=== PATIENT | male | born 1945 | race African-American/Black ===

== ENCOUNTER 2024-10-04 13:19 | Inpatient (IN) | payer MEDICARE, OTHER ==
[~2024-10-04] VITALS: Ht 180.3 cm; Wt 85.0 kg
[~2024-10-04 13:19] MED LIST: CARB-112 PO; LATA0.008 EACHEYE; LINA145C PO; LISI40TA16 PO; POTA8TAB38 PO; TAMS0.4C39 PO
--- NOTE | 2024-10-04 13:28 | ED.PDOC ---
Altered Mental Status HPI Comments 79 year old male SUKHDEEP presents to the ED with chief complaint of ALOC. EMS reports patient is coming from home where he was found by family crawling on the floor of his room with dried vomit on the floor as well. EMS relays patient was altered according to family, however, patient was A/O x4 when questioned on ro [place] to the ED. Family states the patient was last seen normal last night. Patient's blood glucose upon arrival to the ED was noted to be 322. EMS notes patient's EKG first showed a STEMI when on route, however, it may have been due to movement artifact and the 2nd was much more normal. Patient denies any ETOH or drug use, headache, chest pain, SOB, dizziness, N/V/D, or fever. Time Seen by MD: 13:23 Primary Care Provider: ZAIDA Weiss Notes: Nurses Notes, Animal Breeder Notes, Medications, Allergies Allergies: Coded Allergies: NO KNOWN ALLERGIES (Unverified , 08/24/12) Information Source: Patient, Emergency Med Personnel Mode of Arrival: EMS Severity: Moderate Timing: Hours Duration: Since onset Prehospital treatment: None Quality: Decreased Alertness, Change in Behavior, Confusion Recent: Nausea, Vomiting History of: Dementia Past Medical History PAST MEDICAL HISTORY: CHF, Dementia, HTN Past Medical History (Other): Parkinson's Surgical History (Other): Left ear surgery Family History Family History: Reviewed,noncontributory to illness, No family hx of DM, No family hx of HTN Social History Smoker: Quit Greater Than 1 Year Alcohol: Denies ETOH Use Drugs: Denies Drug Use Lives In: Home Constitutional: denies: chills, diaphoresis, fatigue, fever, malaise, sweats, weakness, others EENTM: denies: blurred vision, double vision, ear bleeding, ear discharge, ear drainage, ear pain, ear ringing, eye pain, eye redness, hearing loss, mouth pain, mouth swelling, nasal discharge, nose bleeding, nose congestion, nose pain, photophobia, tearing, throat pain, throat swelling, voice changes, others Respiratory: denies: cough, hemoptysis, orthopnea, SOB at rest, shortness of breath, SOB with excertion, stridor, wheezing, others Cardiovascular: denies: chest pain, dizzy spells, diaphoresis, Dyspnea on exertion, edema, irregular heart beat, left arm pain, lightheadedness, palpitations, PND, syncope, others Gastrointestinal: reports: nausea, vomiting; denies: abdomen distended, abdominal pain, blood streaked bowels, constipated, diarrhea, dysphagia, difficulty swallowing, hematemesis, melena, poor appetite, poor fluid intake, rectal bleeding, rectal pain, others Genitourinary: denies: burning, dysuria, flank pain, frequency, hematuria, inco ntinence, penile discharge, penile sore, pain, testicle pain, testicle swelling, urgency, others Neurological: denies: dizziness, fainting, headache, left sided numbness, left sided weakness, numbness, paresthesia, pre-existing deficit, right sided numbness, right sided weakness, seizure, speech problems, tingling, tremors, weakness, others Musculoskeletal: denies: back pain, gout, joint pain, joint swelling, muscle pain, muscle stiffness, neck pain, others Integumetry: denies: bruises, change in color, change in hair/nails, dryness, laceration, lesions, lumps, rash, wounds, others Allergic/Immunocompromised: denies: Difficulty Healing, Frequent Infections, Hives, Itching, others Hematologic/Lymphatic: denies: anemia, blood clots, easy bleeding, easy bruising, swollen glands, others Endocrine: denies: excessive hunger, excessive sweating, excessive thirst, excessive urination, flushing, intolerance to cold, intolerance to heat, unexplained weight gain, unexplained weight loss, others Psychiatric: denies: anxiety, bipolar disorder, depression, hopeless, panic disorder, schizophrenia, sleepless, suicidal, others All Other Systems: Reviewed and Negative Physical Exam General Appearance: Moderate Distress HEENT: Normal ENT Inspection, Pharynx Normal, TMs Normal Neck: Full Range of Motion, Non-Tender, Normal, Normal Inspection Respiratory: Chest Non-Tender, Lungs Clear, No Accessory Muscle Use, No Respiratory Distress, Normal Breath Sounds Cardiovascular: No Edema, No JVD, No Murmur, No Gallop, Normal Peripheral Pulses, Regular Rate/Rhythm Breast Exam: Deferred Gastrointestinal: No Organomegaly, Non Tender, No Pulsatile Mass, Normal Bowel Sounds, Soft Genitalia: Deferred Pelvic: Deferred Rectal: Deferred Extremities: No calf tenderness, Normal capillary refill, No pedal edema Musculoskeletal : Apperance: Normal Neurologic: project control officer II-XII nml as Tested, Motor Weakness, Normal Affect, Normal Mood, No Sensory Deficits, Other (Altered mental status with the patient was attempting to answer questions) Cerebellar Function: Normal Reflexes: Normal Skin: Dry, Pallor, Warm Lymphatic: No Adenopathy EKG EKG : Pulse Rate (adult): 92 Pratt: Normal Cardiac Rhythm: NSR Block: None Hypertrophy: None ST: Normal Was a procedure done? Was a procedure done?: No Differential Diagnosis (ALOC) Differential Diagnosis: Dehydration, Hypoglycemia, Encephalopathy, CVA, Drug Overdose, ETOH Intoxication X-Ray, Labs, Meds, VS Vital Signs Date Time Temp Pulse Resp B/P (MAP) Pulse Ox O2 Delivery O2 Flow Rate FiO2 10/04/24 16:00 79 10/04/24 14:06 74 15 98 Room Air* 0 21 10/04/24 14:04 97.9 76 16 137/67 (90) 98 97.9 10/04/24 13:38 85 10/04/24 13:28 92 10/04/24 13:25 96 18 148/81 (103) 95 10/04/24 13:21 92 Lab Test 10/04/24 15:44 10/04/24 13:43 Range/Units Troponin I High Sensitivity 8 8 </=54 ng/L White Blood Count 13.9 H 4.4-10.8 10^3/uL Red Blood Count 6.15 H 4.5-5.90 10^6/uL Hemoglobin 15.2 13.5-17.5 g/dL Hematocrit 45.9 41.0-53.0 % Mean Corpuscular Volume 74.7 L 80.0-100.0 fL Mean Corpuscular Hemoglobin 24.7 L 28.0-32.0 pg Mean Corpuscular Hemoglobin Concent 33.0 32.0-36.0 g/dL Red Cell Distribution Width 15.4 H 11.8-14.3 % Platelet Count 300 140-450 10^3/uL Mean Platelet Volume 7.1 6.9-10.8 fL Neutrophils (%) (Auto) 37.0-80.0 % Lymphocytes (%) (Auto) 10.0-50.0 % Monocytes (%) (Auto) 0.0-12.0 % Basophils (%) (Auto) 0.0-2.0 % Neutrophils # (Auto) 1.6-8.6 10 ^3/uL Lymphocytes # (Auto) 0.4-5.4 10 ^3/uL Monocytes # (Auto) 0-1.3 10 ^3/uL Differential Total Cells Counted 100.0 100 Neutrophils % (Manual) 88 H 37.0-80.0 Band Neutrophils % (Manual) 1 Lymphocytes % (Manual) 7 L 10.0-50.0 Monocytes % (Manual) 4 0-12 Eosinophils % (Manual) 0 0-7 Basophils % (Manual) 0 0.0-2.0 Metamyelocytes % (manual) 0 Myelocytes % (Manual) 0 Promyelocytes % (Manual) 0 Blast Cells % (Manual) 0 Reactive Lymphocytes 0 Platelet Estimate Adequate Sodium Level 141 136-145 mmol/L Potassium Level 3.8 3.5-5.1 mmol/L Chloride Level 103 98-107 mmol/L Carbon Dioxide Level 27 20-31 mmol/L Anion Gap 11 5-15 Blood Urea Nitrogen 18 9-23 mg/dL Creatinine 1.28 0.700-1.30 mg/dL Glomerular Filtration Rate Calc 57 >90 mL/min BUN/Creatinine Ratio 14.1 10.0-20.0 Serum Glucose 185 H 74-106 mg/dL Calcium Level 9.6 8.7-10.4 mg/dL Plasma/Serum Blood Alcohol 3.7 <10 mg/dL CT scan of the head shows: Impression: No evidence of acute intracranial abnormality. Mild bilateral ethmoid, frontal and maxillary sinus disease. The chest x-ray is negative The CBC and chemistry panel are within normal limits The serum glucose is 185 The patient is so family has arrived at bedside They confirmed that this patient was not at baseline At this time the patient will be admitted with a diagnosis metabolic encepha lopathy The troponin level x2 is within normal range X-Ray, Labs, Meds, VS Comment 1320: Spoke with Dr. Mcgee regarding the patient's EKG and he reports there is no STEMI seen in the EKG. Time of 1ST Reevaluation: 17:13 Reevaluation 1ST: Unchanged Patient Education/Counseling: Diagnosis, Treatment, Prognosis Family Education/Counseling: No Family Present Departure 1 Departure Time of Disposition: 17:14 Impression: Primary Impression: Metabolic encephalopathy Disposition: ADMITTED INPATIENT Admit to: Tele Condition: Fair Critical Care Note Critical Care Time?: No Stability Stability form required: Yes Unstable for transfer: Telemetry monitoring (Telemetry monitoring required), ED Physician Assesment (Clinical assesment) Heart Score Heart Score: Heart Score Response (Comments) Value History Moderate Suspicious 1 EKG Normal 0 Age >65 2 Risk Factors 1 or 2 risk factors 1 Troponin Normal limit 0 Total 4 I personally scribed for ELIDA LANDON MD ([email or web address]) on 10/04/24 at 13:28. Electronically submitted by Leonardo Phillip ([email or web address]). ELIDA LANDON MD Oct 04, 2024 13:28
[2024-10-04 14:02] LABS: Mean Corpuscular Volume 74.7 fL (80.0-100.0)
[2024-10-04 14:04] LABS: Hematocrit 45.9 % (41.0-53.0); Hemoglobin 15.2 g/dL (13.5-17.5); Mean Corpuscular Hemoglobin 24.7 pg (28.0-32.0); Platelet Count (auto) 300 10^3/uL (140-450); Red Blood Cells 6.15 10^6/uL (4.5-5.90); Red Cell Distribution Width 15.4 % (11.8-14.3); White Blood Cell 13.9 10^3/uL (4.4-10.8)
[2024-10-04 14:06] VITALS: PULSE 74; RESP 15; O2SAT 98
[2024-10-04 14:10] LABS: Chloride 103 mmol/L (98-107); Potassium 3.8 mmol/L (3.5-5.1); Sodium 141 mmol/L (136-145)
[2024-10-04 14:11] LABS: Anion Gap 11 (5-15); Calcium 9.6 mg/dL (8.7-10.4); Carbon Dioxide 27 mmol/L (20-31)
[2024-10-04 14:16] LABS: BUN/Creatinine Ratio 14.1 (10.0-20.0); Blood Alcohol 3.7 mg/dL (<10); Blood Urea Nitrogen 18 mg/dL (9-23)
[2024-10-04 14:19] LABS: Glucose 185 mg/dL (74-106)
--- NOTE | 2024-10-04 14:31 | DVH ---
CHEST RADIOGRAPH Indication: weakness Technique: Single frontal view of the chest was obtained Comparison: None FINDINGS: Lines and Tubes: None Lungs: No focal consolidation. Mild fullness of the right paratracheal stripe which may be from sligh t image rotation to the left with underlying mediastinal mass/ tortuous vasculature/ prominent thyroi d not excluded.. Pleura: No effusion. No pneumothorax. Cardiomediastinal contours: Unremarkable Bones: No acute osseous abnormality. IMPRESSION: No acute cardiopulmonary disease.
[2024-10-04 14:43] LABS: Basophils % (manual) 0 (0.0-2.0); Blast Cells 0; Eosinophils % (manual) 0 (0-7); Metamyelocytes % 0; Myelocytes % 0; Promyelocytes % 0; Reactive Lymphocytes 0
--- NOTE | 2024-10-04 14:46 | DVH ---
Procedure: CT HEAD WITHOUT CONTRAST Study Date and Requested Time: 10/04/2024 02:27 PM History: aloc Comparison: None Dose: CTDI: 56.27 mGy DLP: 902.03 mGycm Technique: Multiplanar images obtained through the brain without intravenous contrast. Findings: Moderate diffuse brain atrophy. Mild chronic small vessel ischemic changes. Bilateral basal ganglia p hysiologic calcification. No hemorrhages, masses, mass effect, midline shift, herniation or cytotoxic edema following a large v ascular territory. No intra-axial or extra-axial fluid collections. No evidence of hydrocephalus. The basal cisterns are patent. The pituitary gland, sella and parasellar regions are unremarkable. The cerebellar tonsils are in nor mal position. The cerebellum is unremarkable. The orbits and globes are unremarkable. Mild mucoperiosteal thickening of the ethmoid, frontal and ma xillary sinuses. The sphenoid sinuses and mastoids are clear. There are no worrisome calvarial lesio ns. Impression: No evidence of acute intracranial abnormality. Mild bilateral ethmoid, frontal and maxillary sinus disease.
[2024-10-04 15:40] LABS: Band Neutrophils % (manual) 1; Lymphocytes % (manual) 7 (10.0-50.0); Monocytes % (manual) 4 (0-12); Platelet Estimate Adequate
[2024-10-04] MEDS ORDERED: DOCUSATE SOD 100 MG CAP PO PRN (18:45)
[2024-10-04] MEDS ORDERED: HYDROcodone-ACET 5/325MG TAB PO PRN (18:45)
[2024-10-04] MEDS ORDERED: ONDANSETRON HCL 4 MG/2 ML VIAL IV PRN (18:45)
[2024-10-04] MEDS ORDERED: MORPHINE SULFATE INJ 2 MG/ml SYRG IV PRN (18:45)
[2024-10-04] MEDS ORDERED: ACETAMINOPHEN 325 MG TAB PO PRN (18:45)
[2024-10-04] MEDS ORDERED: NITROGLYCERIN 0.4 MG SL TAB SL PRN (18:45)
--- NOTE | 2024-10-04 18:47 | DVHHP2 ---
History of Present Illness Reason for Visit: Metabolic encephalopathy History of Present Illness The patient is a 79-year-old male with past medical history of dementia, CHF, Parkinson's disease, and hypertension who presented to [facility] ED for evaluation of altered level of consciousness. Patient was found by family member crawling on the floor of his room with dry vomit so EMS were called. Patient was seen and evaluated in the ED, laboratory data shows WBC 13.9, platelets 300, sodium 141, potassium 3.8, BUN 18, creatinine 1.28, GFR 57, glucose 185, hemoglobin A1c 5.8, troponin 8, blood pressure 151/67, heart rate 76, temperature 97.9 F, O2 saturation 98% on room air. Head CT showed no evidence of acute intracranial abnormality, mild bilateral ethmoid, frontal, and maxillary sinus disease noted. Patient was started on IV antibiotic regimen Rocephin, please see medication orders section in the computer. On my assessment, patient remains weak, no diaphoresis, no palpitations, no shortness of breath, no diarrhea, no nausea, no vomiting, no fever, no chills. Patient was admitted for further evaluation and medical management. Past Medical History CHF, Dementia, HTN, Parkinson's Past Surgical History Left ear surgery Family History Reviewed, noncontributory to the management of this case. Past Social History The patient lives at home, denies smoking, alcohol or illicit drugs abuse. Review of Systems Constitutional: Yes: Weakness; No: Fever, Chills, Sweats, Malaise, Other Eyes: No: Pain, Vision change, Conjunctivae inflammation, Eyelid inflammation, Other, Redness ENT: No: Ear pain, Ear discharge, Nose pain, Nose discharge, Nose congestion, Mouth pain, Mouth swelling, Throat pain, Throat swelling, Other Respiratory: No: Cough, Dry, Shortness of breath, SOB with excertion, Wheezing, Hemoptysis, Pleuritic Pain, Sputum, Wheezing, Other Cardiovascular: No: Chest Pain, Palpitations, Orthopnea, Paroxysmal Noc. Dyspnea, Edema, Lt Headedness, Other Gastrointestinal: Vomiting; No: Nausea, Abdominal Pain, Diarrhea, Constipation, Melena, Hematochezia, Other Genitourinary: No Dysuria, No Frequency, No Incontinence, No Hematuria, No Retention, No Other Musculoskeletal: No: other, neck pain, shoulder pain, arm pain, back pain, hand pain, leg pain, foot pain Skin: No: Rash, Lesions, Jaundice, Bruising, Other Neurological: No: Weakness, Numbness, Incoordination, Change in speech, Conf usion, Seizures, Other Allergies: Coded Allergies: NO KNOWN ALLERGIES (Unverified , 08/24/12) Exam Vital Signs Vital Signs Date Time Temp Pulse Resp B/P (MAP) Pulse Ox O2 Delivery O2 Flow Rate FiO2 10/04/24 18:45 69 18 156/73 (100) 98 10/04/24 14:06 Room Air* 0 21 10/04/24 14:04 97.9 97.9 General Appearance: Alert, Cooperative, No acute distress, Other (Oriented x2) HEENT: Atraumatic, PERRLA, EOMI, Mucous membr. moist/pink Respiratory: Clear to auscultation, Normal air movement Cardiovascular: Regular rate, Normal S1, Normal S2, No murmurs Abdominal: Normal bowel sounds, Soft, No tenderness, No hepatospenomegaly, No masses Extremities: No clubbing, No cyanosis, No edema, Normal pulses, No tenderness/swelling Skin: No rashes, No breakdown, No significant lesion Neuro: Normal tone, Sensation intact, Cranial nerves 3-12 NL, Reflexes 2+, Other (Unsteady gait, generalized weakness.) Psych/Mental Status: Mood NL, Other (Altered mental status) Labs/Xrays Labs Test 10/04/24 17:50 10/04/24 13:43 Range/Units Troponin I High Sensitivity 8 </=54 ng/L White Blood Count 13.9 H 4.4-10.8 10^3/uL Red Blood Count 6.15 H 4.5-5.90 10^6/uL Hemoglobin 15.2 13.5-17.5 g/dL Hematocrit 45.9 41.0-53.0 % Mean Corpuscular Volume 74.7 L 80.0-100.0 fL Mean Corpuscular Hemoglobin 24.7 L 28.0-32.0 pg Mean Corpuscular Hemoglobin Concent 33.0 32.0-36.0 g/dL Red Cell Distribution Width 15.4 H 11.8-14.3 % Platelet Count 300 140-450 10^3/uL Mean Platelet Volume 7.1 6.9-10.8 fL Neutrophils (%) (Auto) 37.0-80.0 % Lymphocytes (%) (Auto) 10.0-50.0 % Monocytes (%) (Auto) 0.0-12.0 % Basophils (%) (Auto) 0.0-2.0 % Neutrophils # (Auto) 1.6-8.6 10 ^3/uL Lymphocytes # (Auto) 0.4-5.4 10 ^3/uL Monocytes # (Auto) 0-1.3 10 ^3/uL Differential Total Cells Counted 100.0 100 Neutrophils % (Manual) 88 H 37.0-80.0 Band Neutrophils % (Manual) 1 Lymphocytes % (Manual) 7 L 10.0-50.0 Monocytes % (Manual) 4 0-12 Eosinophils % (Manual) 0 0-7 Basophils % (Manual) 0 0.0-2.0 Metamyelocytes % (manual) 0 Myelocytes % (Manual) 0 Promyelocytes % (Manual) 0 Blast Cells % (Manual) 0 Reactive Lymphocytes 0 Platelet Estimate Adequate Sodium Level 141 136-145 mmol/L Potassium Level 3.8 3.5-5.1 mmol/L Chloride Level 103 98-107 mmol/L Carbon Dioxide Level 27 20-31 mmol/L Anion Gap 11 5-15 Blood Urea Nitrogen 18 9-23 mg/dL Creatinine 1.28 0.700-1.30 mg/dL Glomerular Filtration Rate Calc 57 >90 mL/min BUN/Creatinine Ratio 14.1 10.0-20.0 Serum Glucose 185 H 74-106 mg/dL Calcium Level 9.6 8.7-10.4 mg/dL Plasma/Serum Blood Alcohol 3.7 <10 mg/dL PATIENT: TIMOTHY LEZAMA ACCT: [id number] UNIT: [id number] : 1945 LOC: ER ROOM / BED: / AGE / SEX: 79 / M ADM STATUS: REG ER SERVICE 1323 ORDERING PHYSICIAN: ELIDA LANDON MD PROCEDURE(s): HWOCT - HEAD WITHOUT CONTRAST REASON: aloc ORDER NUMBER(s): [id number], ACCESSION NUMBER(s): [id number] Procedure: CT HEAD WITHOUT CONTRAST Study Date and Requested Time: 10/04/2024 02:27 PM History: aloc Comparison: None Dose: CTDI: 56.27 mGy DLP: 902.03 mGycm Technique: Multiplanar images obtained through the brain without intravenous contrast. Findings: Moderate diffuse brain atrophy. Mild chronic small vessel ischemic changes. Bilateral basal ganglia physiologic calcification. No hemorrhages, masses, mass effect, midline shift, herniation or cytotoxic edema following a large vascular territory. No intra-axial or extra-axial fluid collections. No evidence of hydrocephalus. The basal cisterns are patent. The pituitary gland, sella and parasellar regions are unremarkable. The cerebellar tonsils are in normal position. The cerebellum is unremarkable. The orbits and globes are unremarkable. Mild mucoperiosteal thickening of the ethmoid, frontal and maxillary sinuses. The sphenoid sinuses and mastoids are clear. There are no worrisome calvarial lesions. Impression: No evidence of acute intracranial abnormality. Mild bilateral ethmoid, frontal and maxillary sinus disease. ORDERING PHYSICIAN: ELIDA LANDON MD PROCEDURE(s): CXRP - CHEST PORTABLE REASON: weakness ORDER NUMBER(s): [id number], ACCESSION NUMBER(s): [id number] CHEST RADIOGRAPH Indication: weakness Technique: Single frontal view of the chest was obtained Comparison: None FINDINGS: Lines and Tubes: None Lungs: No focal consolidation. Mild fullness of the right paratracheal stripe which may be from slight image rotation to the left with underlying mediastinal mass/ tortuous vasculature/ prominent thyroid not excluded.. Pleura: No effusion. No pneumothorax. Cardiomediastinal contours: Unremarkable Bones: No acute osseous abnormality. IMPRESSION: No acute cardiopulmonary disease. Assessment/Plan Assessment/Plan Altered mental status Leukocytosis, unspecified Acute renal injury Hyperglycemia Generalized weakness Plan 1. Admit to telemetry unit 2. Breathing treatment 3. Pain control management 4. IV antibiotic management 5. Management of fluids and electrolytes 6. Consultation for hospitalist 7. Diagnostic test head CT 8. DVT prophylaxis-on SCDs 9. Repeat labs CBC, CMP in a.m. 10. Home medication reviewed and reconciled 11. Continue with current medical management 12. Treatment plan discussed with patient and RN. Patient verbalized understanding. Plan discussed with: Patient, Other (RN) My Orders Orders - MARIELA MENA DNP Procedure Category Date Status Time Carbidopa W Levodopa PHA 10/04/24 Verified 25/100mg (Sinemet 2 22:00 Amlodipine Tablet PHA 10/05/24 Verified (Norvasc Tablet) 10:00 Hydralazine Injection PHA 10/04/24 Verified (Apresoline Inject 18:45 Ceftriaxone Ivpb PHA 10/05/24 Verified Rocephin 09:00 Ceftriaxone Ivpb PHA 10/04/24 Verified Rocephin 18:45 Tamsulosin PHA 10/05/24 Verified Hydrochloride (Flomax) 18:00 Donepezil Tablet PHA 10/04/24 Verified (Aricept Tablet) 22:00 Admit ADMIT 10/04/24 Verified 18:39 Allergies WAYNE 10/04/24 Verified 18:39 Code Status CODE 10/04/24 Verified 18:39 Sodium Chloride Lock PHA 10/04/24 Verified (Saline Lock Ns) 22:00 Problem List: (1) Altered mental status (2) Leukocytosis, unspecified (3) Hyperglycemia (4) Acute renal injury (5) Generalized weakness Date of Service: Oct 04, 2024 Billing Provider: MARIELA MENA DNP Common Visit Codes: [id number] INP/OBS CARE (HIGH) MARIELA MENA DNP Oct 04, 2024 18:47
--- NOTE | 2024-10-04 19:11 | ECG ---
[facility] Test Date: 2024-10-04 Test Time: 13:21:00 Pat Name: TIMOTHY LEZAMA Department: ER Room: 0277T Gender: M Inspector Watch Train: KARLEE : 1945 Requested By: ELIDA LANDON Order Number: [id number] Reading MD: Isaac Graves Measurements Intervals Lissie Rate: 92 P: 89 MS: 156 QRS: 52 QRSD: 101 T: -20 QT: 343 QTc: 425 Interpretive Statements Sinus rhythm Lateral infarct, acute Artifact in lead(s) I,II,III,aVR,aVL,aVF,V1,V3,V6 and baseline wander in lead(s) V2 Electronically Signed On 10-05-2024 13:10:33 PST by Isaac Graves Please click the below link to view image of tracing.
[2024-10-04] MEDS: cefTRIAXone 1GM/50ML D5W 50 ML IV ONE (19:20)
[2024-10-04] MEDS: SODIUM CHLOR 0.9% PF (SALINE LOCK) 10ML VIAL/SYR IV SCH (22:12)
[2024-10-04] MEDS: DONEPEZIL HYDROCHLORIDE 5 MG TAB PO SCH (22:12)
[2024-10-04] MEDS: CARBIDOPA W LEVODOPA 25/100mg TABLET PO SCH (22:13)
[2024-10-04 22:55] VITALS: BP 124/62; PULSE 62; RESP 18; TEMP 98.6; O2SAT 100
[2024-10-04] MEDS ORDERED: AMLO1TAB22 PO (23:29)
[2024-10-04] MEDS ORDERED: HYDR12.59 PO (23:29)
[2024-10-04] MEDS ORDERED: DONE1TAB88 PO (23:29)
[2024-10-05] VITALS (9 sets, daily range): BP systolic 108–132; BP diastolic 62–71; PULSE 63–74; RESP 17–20; TEMP 97.6–99.1; O2SAT 93–97
[2024-10-05 06:37] LABS: Basophils # (auto) 0 10 ^3/uL (0-0.2); Eosinophils # (auto) 0 10 ^3/uL (0-0.8); Monocytes # (auto) 1.4 10 ^3/uL (0-1.3)
[2024-10-05 06:40] LABS: Alanine Aminotransferase 30 U/L (7-40); Albumin 3.7 g/dL (3.2-4.8); Alkaline Phosphatase 64 U/L (46-116); Anion Gap 6 (5-15); Aspartate Aminotransferase 106 U/L (13-40); BUN/Creatinine Ratio 16.4 (10.0-20.0); Basophils % (auto) 0.3 % (0.0-2.0); Bilirubin, Total 0.8 mg/dL (0.2-1.0); Blood Urea Nitrogen 23 mg/dL (9-23); Calcium 9.3 mg/dL (8.7-10.4); Carbon Dioxide 28 mmol/L (20-31); Chloride 106 mmol/L (98-107); Eosinophils % (auto) 0.3 % (0.0-7.0); Glucose 109 mg/dL (74-106); Hematocrit 40.5 % (41.0-53.0); Hemoglobin 13.6 g/dL (13.5-17.5); Lymphocytes # (auto) 1.4 10 ^3/uL (0.4-5.4); Lymphocytes % (auto) 12.8 % (10.0-50.0); Mean Corpuscular Hemoglobin 24.9 pg (28.0-32.0); Mean Corpuscular Hgb Conc. 33.5 g/dL (32.0-36.0); Mean Corpuscular Volume 74.2 fL (80.0-100.0); Monocytes % (auto) 12.9 % (0.0-12.0); Neutrophils % (auto) 73.7 % (37.0-80.0); Nucleated Red Blood Cells % 0.2 %; Platelet Count (auto) 251 10^3/uL (140-450); Potassium 3.6 mmol/L (3.5-5.1); Red Blood Cells 5.45 10^6/uL (4.5-5.90); Red Cell Distribution Width 15.1 % (11.8-14.3); Sodium 140 mmol/L (136-145); Total Protein 6.2 g/dL (5.7-8.2); White Blood Cell 10.8 10^3/uL (4.4-10.8)
[2024-10-05] MEDS: cefTRIAXone 1GM/50ML D5W 50 ML IV SCH (10:01)
[2024-10-05] MEDS: amLODIPine BESYLATE 5 MG TAB PO SCH (10:02)
--- NOTE | 2024-10-05 17:41 | DVHPN2 ---
Subjective With a gait of the patient from pretty unimpressive who was admitted by the hospitalist team. Patient was seen in his bed by means bibasilar witnessed snoring. Patient currently motor vehicle alert. Reviewed: Care Plan Changes from previous H/P or p: No Changes Eyes: No Pain, No Vision change, No Conjunctivae inflammation, No Eyelid inflammation, No Other, No Redness ENT: No Ear pain, No Ear discharge, No Nose pain, No Nose discharge, No Nose congestion, No Mouth pain, No Mouth swelling, No Throat pain, No Throat swelling, No Other Cardiovascular: No Chest Pain, No Palpitations, No Orthopnea, No Paroxysmal Noc. Dyspnea, No Edema, No Lt Headedness, No Other Respiratory: No Cough, No Dry, No Shortness of breath, No SOB with excertion, No Wheezing, No Hemoptysis, No Pleuritic Pain, No Sputum, No Other Gastrointestinal: No Nausea; Vomiting; No Abdominal Pain, No Diarrhea, No Constipation, No Melena, No Hematochezia, No Other Genitourinary: No Dysuria, No Frequency, No Incontinence, No Hematuria, No Retention, No Other Musculoskeletal: No other, No neck pain, No shoulder pain, No arm pain, No back pain, No hand pain, No leg pain, No foot pain Skin: No Rash, No Lesions, No Jaundice, No Bruising, No Other Objective Vitals Vital Signs Date Time Temp Pulse Resp B/P (MAP) Pulse Ox O2 Delivery O2 Flow Rate FiO2 10/05/24 16:29 97.8 64 17 132/68 (89) 96 97.8 10/05/24 07:30 Room Air* 0 21 Intake/Output Intake and Output 10/05/24 07:00 Intake Total 0 ml Balance 0 ml Intake Oral 0 ml # Voids 1 Exam HEENT pupils reactive Neck is supple CBC has been S2 regular rate and rhythm Extremity no pedal edema FINANCIAL OPERATIONS ANALYST no motor deficit Medications Current Medications Medications Dose Ordered Sig/Nasir Route Start Time Stop Time Status Last Admin Dose Admin Carbidopa/Levodopa 1 tab QID PO 10/04/24 22:00 10/05/24 12:24 1 TAB Amlodipine Besylate 5 mg DAILY PO 10/05/24 10:00 10/05/24 10:02 5 MG Hydralazine HCl 10 mg Q6HP PRN IV 10/04/24 18:45 Ceftriaxone Sodium 50 ml @ 100 mls/hr DAILY@09 IV 10/05/24 09:00 10/05/24 10:01 100 MLS/HR Tamsulosin HCl 0.4 mg QPM PO 10/05/24 18:00 Donepezil HCl 10 mg HS PO 10/04/24 22:00 10/04/24 22:12 10 MG Sodium Chloride 10 ml Q8HR IV 10/04/24 22:00 10/05/24 14:05 10 ML Acetaminophen/ Hydrocodone Bitart 1 tab Q4HP PRN PO 10/04/24 18:45 Ondansetron HCl 4 mg Q4HP PRN IV 10/04/24 18:45 Docusate Sodium 100 mg BIDPRN PRN PO 10/04/24 18:45 Acetaminophen 650 mg Q6HP PRN PO 10/04/24 18:45 Nitroglycerin 0.4 mg Q5MINP PRN SL 10/04/24 18:45 Morphine Sulfate 2 mg Q30M PRN IV 10/04/24 18:45 Laboratory Results Laboratory Tests 10/05/24 05:15 Chemistry Test 10/05/24 05:15 Albumin 3.7 g/dL (3.2-4.8) Calcium Level 9.3 mg/dL (8.7-10.4) Total Protein 6.2 g/dL (5.7-8.2) LFT Test 10/05/24 05:15 Alanine Aminotransferase (ALT) 30 U/L (7-40) Alkaline Phosphatase 64 U/L (46-116) Aspartate Amino Transferase (AST) 106 U/L (13-40) H Total Bilirubin 0.8 mg/dL (0.2-1.0) Assessment/Plan Assessment/Plan 9-year-old male with a known history of Alzheimer dementia, Parkinson disease, hypertension initially was into the hospital with a altered mental status found to have 1. Acute delirium 2. Metabolic encephalopathy 3. Dementia 4. Hypertension 5. Leukocytosis 6. Parkinson's disease -physical therapy evaluation and treatment follow up UA urine culture Plan discussed with: Patient, Other My Orders Orders - GARCIA SANCHEZ MD Procedure Category Date Status Time * Psych Social Worker CONS 10/05/24 Transmitted Consult Pt Request For Service PT 10/05/24 Logged 17:30 Date of Service: Oct 05, 2024 Billing Provider: GARCIA SANCHEZ MD Common Visit Codes: NOT BILLABLE GARCIA SANCHEZ MD Oct 05, 2024 17:41
[2024-10-05] MEDS: TAMSULOSIN HYDROCHLORIDE 0.4 MG CAP PO SCH (17:58)
[2024-10-06] VITALS (9 sets, daily range): BP systolic 115–158; BP diastolic 57–78; PULSE 60–85; RESP 17–20; TEMP 98–98.6; O2SAT 95–97
[2024-10-06 02:54] LABS: Urine Bacteria None Seen /hpf (None Seen)
[2024-10-06 03:29] LABS: Urine Blood TRACE /uL (Negative); Urine Clarity Clear (Clear); Urine Color Light-Yellow (Yellow); Urine Hyaline Cast FEW /lpf (0 - 2); Urine Mucus FEW (None Seen); Urine Protein, UAD Negative (Negative); Urine Squamous Epithelial Cell None Seen /hpf (<5); Urine Urobilinogen Normal (Negative); Urine WBC <1 /hpf (0 - 3)
[2024-10-06] MEDS: hydrALAZINE HCL 20 MG/ML VL IV PRN (06:10)
--- NOTE | 2024-10-06 13:14 | DVHPN2 ---
Subjective Patient is awake alert knows she is in the hospital. Requesting to go home. Reviewed: Care Plan Changes from previous H/P or p: No Changes Eyes: No Pain, No Vision change, No Conjunctivae inflammation, No Eyelid inflammation, No Other, No Redness ENT: No Ear pain, No Ear discharge, No Nose pain, No Nose discharge, No Nose congestion, No Mouth pain, No Mouth swelling, No Throat pain, No Throat swelling, No Other Cardiovascular: No Chest Pain, No Palpitations, No Orthopnea, No Paroxysmal Noc. Dyspnea, No Edema, No Lt Headedness, No Other Respiratory: No Cough, No Dry, No Shortness of breath, No SOB with excertion, No Wheezing, No Hemoptysis, No Pleuritic Pain, No Sputum, No Other Gastrointestinal: No Nausea; Vomiting; No Abdominal Pain, No Diarrhea, No Constipation, No Melena, No Hematochezia, No Other Genitourinary: No Dysuria, No Frequency, No Incontinence, No Hematuria, No Retention, No Other Musculoskeletal: No other, No neck pain, No shoulder pain, No arm pain, No back pain, No hand pain, No leg pain, No foot pain Skin: No Rash, No Lesions, No Jaundice, No Bruising, No Other Objective Vitals Vital Signs Date Time Temp Pulse Resp B/P (MAP) Pulse Ox O2 Delivery O2 Flow Rate FiO2 10/06/24 09:37 134/71 10/06/24 09:13 98.4 84 20 96 98.4 10/06/24 07:40 Room Air* 0 21 Intake/Output Intake and Output 10/06/24 07:00 Intake Total 690 ml Output Total 1355 ml Balance -665 ml Intake Oral 640 ml IV Total 50 ml Output Urine Total 1355 ml Exam HEENT pupils reactive Neck is supple CBC has been S2 regular rate and rhythm Extremity no pedal edema [employer] no motor deficit Medications Current Medications Medications Dose Ordered Sig/Nasir Route Start Time Stop Time Status Last Admin Dose Admin Carbidopa/Levodopa 1 tab QID PO 10/04/24 22:00 10/06/24 12:33 1 TAB Amlodipine Besylate 5 mg DAILY PO 10/05/24 10:00 10/06/24 09:37 5 MG Hydralazine HCl 10 mg Q6HP PRN IV 10/04/24 18:45 10/06/24 06:10 10 MG Ceftriaxone Sodium 50 ml @ 100 mls/hr DAILY@09 IV 10/05/24 09:00 10/06/24 09:34 100 MLS/HR Tamsulosin HCl 0.4 mg QPM PO 10/05/24 18:00 10/05/24 17:58 0.4 MG Donepezil HCl 10 mg HS PO 10/04/24 22:00 10/05/24 21:54 10 MG Sodium Chloride 10 ml Q8HR IV 10/04/24 22:00 10/06/24 05:40 10 ML Acetaminophen/ Hydrocodone Bitart 1 tab Q4HP PRN PO 10/04/24 18:45 Ondansetron HCl 4 mg Q4HP PRN IV 10/04/24 18:45 Docusate Sodium 100 mg BIDPRN PRN PO 10/04/24 18:45 Acetaminophen 650 mg Q6HP PRN PO 10/04/24 18:45 Nitroglycerin 0.4 mg Q5MINP PRN SL 10/04/24 18:45 Morphine Sulfate 2 mg Q30M PRN IV 10/04/24 18:45 Laboratory Results Laboratory Tests 10/05/24 05:15 Urinalysis Test 10/06/24 02:27 Urine Color Light-yellow (Yellow) Urine Clarity Clear (Clear) Urine pH 6.0 (5.0-9.0) Urine Specific [place] 1.020 (1.001-1.035) Urine Protein Negative (Negative) Urine Ketones Negative (Negative) Urine Blood Trace /uL (Negative) H Urine Nitrite Negative (Negative) Urine Bilirubin Negative (Negative) Urine Urobilinogen Normal mg/dL (Negative) Urine Leukocyte Esterase Negative /uL (Negative) Urine RBC 2 /hpf (0 - 3) Urine WBC <1 /hpf (0 - 3) Urine Squamous Epithelial Cells None seen /hpf (<5) Urine Bacteria None seen /hpf (None Seen) Urine Hyaline Casts Few /lpf (0 - 2) Urine Mucus Few (None Seen) Urine Glucose Normal mg/dL (Normal) Assessment/Plan Assessment/Plan 79-year-old male with a known history of Alzheimer dementia, Parkinson disease, hypertension initially was into the hospital with a altered mental status found to have 1. Acute delirium , currently at baseline 2. Metabolic encephalopathy 3. Dementia 4. Hypertension 5. Leukocytosis 6. Parkinson's disease -physical therapy evaluation and treatment follow up UA Plan discussed with: Patient My Orders Orders - GARCIA SANCHEZ MD Procedure Category Date Status Time * Fruit Thinner CONS 10/05/24 Transmitted Consult Pt Request For Service PT 10/05/24 Logged 17:30 Date of Service: Oct 06, 2024 Billing Provider: GARCIA SANCHEZ MD Common Visit Codes: NOT BILLABLE GARCIA SANCHEZ MD Oct 06, 2024 13:14
[2024-10-07 01:00] VITALS: BP 130/72; PULSE 76; RESP 17; TEMP 98.6; O2SAT 96
[2024-10-07 05:00] VITALS: BP 137/73; PULSE 74; RESP 17; TEMP 98.5; O2SAT 96
[2024-10-07 08:00] VITALS: PULSE 82
[2024-10-07 09:00] VITALS: BP 127/66; PULSE 69; RESP 18; TEMP 98.2; O2SAT 96
[2024-10-07] MEDS ORDERED: DOCU-94 PO (11:00)
[2024-10-07] MEDS ORDERED: FER325T PO (11:00)
[2024-10-07] MEDS ORDERED: POM PO (11:00)
[2024-10-07 12:00] VITALS: BP 107/65; PULSE 80; RESP 18; TEMP 98; O2SAT 98
[2024-10-07 16:00] VITALS: BP 149/71; PULSE 62; RESP 18; TEMP 98; O2SAT 97
--- NOTE | 2024-10-07 16:47 | DVHDS2 ---
Discharge Summary Date of Admission Oct 04, 2024 at 18:39 Date of Discharge: Oct 07, 2024 Labs/Diagnostic Data: Laboratory Results Test 10/06/24 02:27 10/05/24 05:15 10/04/24 17:50 10/04/24 13:47 Urine Color Light-yellow (Yellow) Urine Clarity Clear (Clear) Urine pH 6.0 (5.0-9.0) Urine Specific [place] 1.020 (1.001-1.035) Urine Protein Negative (Negative) Urine Ketones Negative (Negative) Urine Blood Trace /uL (Negative) Urine Nitrite Negative (Negative) Urine Bilirubin Negative (Negative) Urine Urobilinogen Normal mg/dL (Negative) Urine Leukocyte Esterase Negative /uL (Negative) Urine RBC 2 /hpf (0 - 3) Urine WBC <1 /hpf (0 - 3) Urine Squamous Epithelial Cells None seen /hpf (<5) Urine Bacteria None seen /hpf (None Seen) Urine Hyaline Casts Few /lpf (0 - 2) Urine Mucus Few (None Seen) Urine Glucose Normal mg/dL (Normal) White Blood Count 10.8 10^3/uL (4.4-10.8) Red Blood Count 5.45 10^6/uL (4.5-5.90) Hemoglobin 13.6 g/dL (13.5-17.5) Hematocrit 40.5 % (41.0-53.0) Mean Corpuscular Volume 74.2 fL (80.0-100.0) Mean Corpuscular Hemoglobin 24.9 pg (28.0-32.0) Mean Corpuscular Hemoglobin Concent 33.5 g/dL (32.0-36.0) Red Cell Distribution Width 15.1 % (11.8-14.3) Platelet Count 251 10^3/uL (140-450) Mean Platelet Volume 7.4 fL (6.9-10.8) Neutrophils (%) (Auto) 73.7 % (37.0-80.0) Lymphocytes (%) (Auto) 12.8 % (10.0-50.0) Monocytes (%) (Auto) 12.9 % (0.0-12.0) Eosinophils (%) (Auto) 0.3 % (0.0-7.0) Basophils (%) (Auto) 0.3 % (0.0-2.0) Neutrophils # (Auto) 8.0 10 ^3/uL (1.6-8.6) Lymphocytes # (Auto) 1.4 10 ^3/uL (0.4-5.4) Monocytes # (Auto) 1.4 10 ^3/uL (0-1.3) Eosinophils # (Auto) 0 10 ^3/uL (0-0.8) Basophils # (Auto) 0 10 ^3/uL (0-0.2) Nucleated Red Blood Cells 0.2 % Sodium Level 140 mmol/L (136-145) Potassium Level 3.6 mmol/L (3.5-5.1) Chloride Level 106 mmol/L (98-107) Carbon Dioxide Level 28 mmol/L (20-31) Anion Gap 6 (5-15) Blood Urea Nitrogen 23 mg/dL (9-23) Creatinine 1.40 mg/dL (0.700-1.30) Glomerular Filtration Rate Calc 51 mL/min (>90) BUN/Creatinine Ratio 16.4 (10.0-20.0) Serum Glucose 109 mg/dL (74-106) Calcium Level 9.3 mg/dL (8.7-10.4) Total Bilirubin 0.8 mg/dL (0.2-1.0) Aspartate Amino Transferase (AST) 106 U/L (13-40) Alanine Aminotransferase (ALT) 30 U/L (7-40) Alkaline Phosphatase 64 U/L (46-116) Total Protein 6.2 g/dL (5.7-8.2) Albumin 3.7 g/dL (3.2-4.8) Troponin I High Sensitivity 8 ng/L (</=54) Hemoglobin A1c 5.8 % A1C (<5.7) Test 10/04/24 13:43 Differential Total Cells Counted 100.0 (100) Neutrophils % (Manual) 88 (37.0-80.0) Band Neutrophils % (Manual) 1 Lymphocytes % (Manual) 7 (10.0-50.0) Monocytes % (Manual) 4 (0-12) Eosinophils % (Manual) 0 (0-7) Basophils % (Manual) 0 (0.0-2.0) Metamyelocytes % (manual) 0 Myelocytes % (Manual) 0 Promyelocytes % (Manual) 0 Blast Cells % (Manual) 0 Reactive Lymphocytes 0 Platelet Estimate Adequate Plasma/Serum Blood Alcohol 3.7 mg/dL (<10) Other Laboratory Tests 10/05/24 05:15 Brief Hx & Hospital Course: 79-year-old male with a known history of Alzheimer dementia, Parkinson disease, hypertension initially was into the hospital with a altered mental status found to have acute delirium with underlying Alzheimer dementia patient was diagnosed with metabolic encephalopathy. Patient's CT head was negative. Patient is currently back to baseline currently stable to be discharged with close follow up as an outpatient with the PCP as well as Neurology in 1-2 weeks. Patient's UA is negative leukocytosis likely reactive. Which is improved Condition at Discharge: Stable Final Diagnosis/Problems List 79-year-old male with a known history of Alzheimer dementia, Parkinson disease, hypertension initially was into the hospital with a altered mental status found to have 1. Acute delirium , currently at baseline 2. Metabolic encephalopathy 3. Dementia 4. Hypertension 5. Leukocytosis 6. Parkinson's disease Discharge Disposition: Home with Health Services SNF Discharge Will this Physician continue t: No Discharge Instruct/Medications Diet: Cardiac 2g Na,low cholest Activity: No Restrictions, As Tolerated Follow Up/Referral: Follow up with the PCP in 1-2 weeks Follow up with the Neurology as an outpatient in 1-2 weeks Medications: Resume home medications Discharge Statement: "Patient was advised to return to the ER or call 911 if any headaches, dizziness, shortness of breath, chest pain, abdominal pain, bleeding, fevers, or worsening of medical condition. Patient was counseled about treatment plan, medications, possible side effects, patientverbalized understanding. All questions were answered to the best of my ability. This discharge took greater then 30 minutes in planning, reviewing documentation, counseling the patient, and discussing with other team members." ASSESSMENT ASSESSMENT Assessment 79-year-old male with a known history of Alzheimer dementia, Parkinson disease, hypertension initially was into the hospital with a altered mental status found to have 1. Acute delirium , currently at baseline 2. Metabolic encephalopathy 3. Dementia 4. Hypertension 5. Leukocytosis 6. Parkinson's disease Date of Service: Oct 07, 2024 Billing Provider: GARCIA SANCHEZ MD Common Visit Codes: NOT BILLABLE GARCIA SANCHEZ MD Oct 07, 2024 16:47
== END 2024-10-07 18:30 | disposition home health service (06) | DRG 72 ==
LOC: EDBD 13:19 → ER 13:24 → TELE 18:39 → TELE-WESTW 22:37
PROVIDERS: ADMIT Nurse Practitioner Family; ATTEND Internal Medicine
DX: G93.41 Metabolic encephalopathy (principal); R41.0 Disorientation, unspecified; D72.829 Elevated white blood cell count, unspecified; F02.80 Dementia in other diseases classified elsewhere, unspecified severity, without behavioral disturbance, psychotic disturbance, mood disturbance, and anxiety; I50.9 Heart failure, unspecified; I11.0 Hypertensive heart disease with heart failure; G30.9 Alzheimer's disease, unspecified; G20.A1 Parkinson's disease without dyskinesia, without mention of fluctuations; R73.9 Hyperglycemia, unspecified; Z87.891 Personal history of nicotine dependence
CPT/HCPCS: 36415; 70450; 71045; 80048; 80053; 80320; 81001; 83036; 84484; 85007; 85025; 85027; 93005; 97110; 97116; 97163; 97530; G0378